=== PATIENT | female | born 1950 | race Caucasian/White ===

== ENCOUNTER → 2017-09-15 | Outpatient (CLI) | payer OTHER ==
[2017-09-15 12:04] LABS: HEMATOCRIT 39.5 % (37-47); MEAN CELL VOLUME 88.8 fL (80-100); MEAN CORPUSCULAR HEMOGLOBIN 29.2 pg (25-34); MEAN CORPUSCULAR HGB CONC 32.9 g/dl (32-36); PLATELET COUNT 278 K/uL (130-400); RED BLOOD COUNT 4.45 M/uL (4.2-5.4); WHITE BLOOD COUNT 4.47 K/uL (4.8-10.8)
[2017-09-15 12:33] LABS: ALKALINE PHOSPHATASE 77 U/L (45-117); ALT/SGPT 26 U/L (12-78); AST/SGOT 23 U/L (15-37); BLOOD UREA NITROGEN 9 mg/dl (7-18); BUN/CREATININE RATIO 11.8 (10-20); CALCIUM 8.9 mg/dl (8.5-10.1); CARBON DIOXIDE 28 mmol/L (21-32); CHLORIDE 104 mmol/L (98-107); CREATININE 0.79 mg/dl (0.60-1.20); GLUCOSE,FASTING 95 mg/dl (70-99); HDL CHOLESTEROL 76 mg/dl; POTASSIUM 3.9 mmol/L (3.5-5.1); SODIUM 139 mmol/L (136-145)
[2017-09-15 12:41] LABS: CHOLESTEROL 227 mg/dl (0-200); LDL CHOLESTEROL CALCULATED 125 mg/dl; TRIGLYCERIDES 128 mg/dl (0-150); VERY LOW DENSITY LIPOPROT CALC 26 mg/dl
== END | disposition home or self-care (01) ==
LOC: C.LABPBG 07:42
PROVIDERS: ATTEND Physician Assistant
DX: Z00.00 Encounter for general adult medical examination without abnormal findings (principal); E55.9 Vitamin D deficiency, unspecified; D64.9 Anemia, unspecified

== ENCOUNTER → 2018-01-11 | Outpatient (CLI) | payer OTHER | END | disposition home or self-care (01) | LOC: C.LAB 07:39 | PROVIDERS: ATTEND Nutritionist | DX: R53.83 Other fatigue (principal) ==

== ENCOUNTER 2024-03-16 14:52 | Inpatient (IN) ==
--- NOTE | 2024-03-16 15:03 | ED Triage Note ---
Date of Service March 16, 2024 Provider in Triage Author: Carmelina Shetty History of Present Illness This patient was briefly evaluated while in triage. An abbreviated physical exam was performed. This patient is a 73-year-old Female who presents to the ED for evaluation of eye problems. She went to her eye doctor today b/c she was only seeing shadows in her left eye. The retinal specialist then saw her and drained some fluid. She was then referred to the ER for concerns for a clot in her eye. Symptoms started at 9:45 am, resolved, and then returned again around 10:30 am and hasn't gone away since. Diagnosed with new central retinal artery occlusion and posterior vitreous detachment. Sent to the ER for stroke workup. Physical Exam GENERAL: Non-toxic and in no acute distress. HEENT: Pupils equal. No obvious scleral icterus. HEART: Regular rate and rhythm. LUNGS: Clear to auscultation. No accessory muscle use. ABDOMEN: Soft, nontender to palpation. NEURO: Alert and oriented. No facial droop. Normal speech. Full range of motion of the bilateral upper and lower extremities without weakness. No obvious neurological deficits on quick neuro exam. Dr. Little was notified of the patient's symptoms and the letter carrier recommendations. He did not feel the patient required a stroke alert at this time. Initial orders for labs and / or imaging were placed and patient was taken directly back to a room for Dr. Little to evaluate the patient. Please see further documentation for the full ED course. MDM / Impression Impression Impression: Central retinal artery occlusion, left eye, Hypertension, Vision loss, left eye Impression: Hypertension Qualifiers: Hypertension type: unspecified Qualified Code(s): I10 - Essential (primary) hypertension
[2024-03-16] MEDS: SODIUM CHLORIDE 0.9% 1,000 ML IV ONE ×2 (15:24→17:50)
[2024-03-16] MEDS: OPTIRAY 320 125ml IV ONE (15:40)
[2024-03-16 15:42] LABS: Basophils # (auto) 0.05 K/uL (0.00-0.20); Basophils % (auto) 0.6 %; Eosinophils # (auto) 0.01 K/uL (0.00-0.50); Eosinophils % (auto) 0.1 %; Hematocrit (blood only) 46.4 % (37.0-47.0); Hemoglobin 16.3 g/dl (12.0-16.0); Immature Granulocytes # (auto) 0.04 K/uL (0.01-0.20); Immature Granulocytes % (auto) 0.5 %; Lymphocytes # (auto) 0.61 K/uL (1.20-3.40); Lymphocytes % (auto) 7.4 %; Mean Corpuscular Hemoglobin 32.1 pg (25.0-34.0); Mean Corpuscular Hgb Conc 35.1 g/dL (32.0-36.0); Mean Corpuscular Volume 91.3 fL (80.0-100.0); Mean Platelet Volume 8.4 fL (9.4-12.4); Monocytes # (auto) 0.24 K/uL (0.11-0.59); Monocytes % (auto) 2.9 %; Neutrophils # (auto) 7.26 K/uL (1.40-6.50); Neutrophils % (auto) 88.5 %; Platelet Count 281 K/uL (130-400); RDW Coefficient of Variation 12.4 % (11.5-14.5); RDW Standard Deviation 41.6 fL (36.4-46.3); Red Blood Count 5.08 M/uL (4.20-5.40); White Blood Count 8.21 K/ul (4.8-10.8)
--- NOTE | 2024-03-16 15:57 | CT Scan Report ---
CT SCAN OF THE BRAIN WITHOUT IV CONTRAST CLINICAL HISTORY: Neurological deficit. Stroke like symptoms. COMPARISON STUDY: MRI of the brain dated 02/06/2020. TECHNIQUE: Unenhanced axial CT scan of the brain is performed from the vertex to the skull base. A do se lowering technique was utilized adhering to the principles of ALARA. FINDINGS: Brain parenchyma: There is age-related involutional change noting mild subcortical and periventricula r microangiopathic disease. There is no hemorrhage, mass effect, or evidence of acute territorial isc hemia by CT criteria. Napier-white matter differentiation is preserved. No extra-axial fluid collection is seen. Ventricles, sulci, cisterns: Prominent secondary to involutional change. Intracranial vasculature: There is atherosclerotic calcification of the cavernous carotid and vertebr al arteries. Calvarium: Unremarkable. Sinuses and mastoids: The visualized paranasal sinuses are clear. The mastoid air cells are well pneu matized. Orbits: The bony orbits are grossly intact. IMPRESSION: There is no hemorrhage, mass effect, or evidence of acute territorial ischemia by CT alecia gatica. ACT 112: Negative or not required by law. Electronically signed by: Ronni Magana M.D. 03/16/2024 3:56 PM
[2024-03-16 15:58] LABS: Alanine Aminotransferase 20 U/L (7-52); Albumin Globulin Ratio 1.4 (0.9-2); Albumin Level 4.6 gm/dl (3.4-5.0); Alkaline Phosphatase 96 U/L (34-104); Anion Gap 7 (3-11); Aspartate Aminotransferase 25 U/L (13-39); BUN Creatinine Ratio 11.6 (10-20); Bilirubin,Total 0.5 mg/dl (0.2-1.0); Blood Urea Nitrogen 8 mg/dl (6-23); C Reactive Protein < 0.50 mg/dl (0-0.5); Calcium 10.1 mg/dl (8.6-10.3); Carbon Dioxide 29 mmol/L (21-32); Chloride 101 mmol/L (98-107); Creatinine Clr Calc Pharmacy 71.7 ml/min; Est GFR (African American) 100.8 ml/min; Globulin 3.2 gm/dl (2.5-4.0); Glucose 119 mg/dl (70-99(Fasting)); Magnesium 2.1 mg/dl (1.7-2.4); Potassium 3.5 mmol/L (3.5-5.1); Sodium 137 mmol/L (136-145); Total Protein 7.8 gm/dl (6.0-8.3)
--- NOTE | 2024-03-16 16:01 | CT Scan Report ---
CT ANGIOGRAPHY OF THE NECK WITH CONTRAST CLINICAL HISTORY: neuro deficit, acute stroke suspected COMPARISON STUDY: No previous studies for comparison. Technique: CT angiography of the carotid and vertebral arteries was obtained using Optiray and 3D rec onstruction on an independent workstation. NASCET criteria was utilized. Automated exposure control was utilized for the study. A dose lowering technique was utilized adhering to the principles of ALA RA. CT DOSE: 971.38 mGy.cm Findings: Visualized portions of the lung apices are unremarkable. There is no cervical spine fractur e. There is no cervical lymphadenopathy. The bilateral common carotid, cervical internal carotid and vertebral arteries are patent. No dissection, stenosis or aneurysm within the neck is identified. IMPRESSION: Unremarkable CTA of the neck. ACT 112: Negative or not required by law. Electronically signed by: Shawn Andres M.D. 03/16/2024 3:59 PM
--- NOTE | 2024-03-16 16:02 | CT Scan Report ---
CT angio head w con CLINICAL HISTORY: 73 years-old Female with neuro deficit, acute stroke suspected. Acute strokelike symptoms COMPARISON STUDY: Head CT of same day TECHNIQUE: Following the IV administration of 119 cc of Optiray, CT angiogram of the brain was perfor med from the skull base to the vertex. Images are reviewed in the axial, sagittal, and coronal planes . 3-D MIPS images are created and assessed. IV contrast was administered without complication. All me asurements were obtained according to NASCET criteria. A dose lowering technique was utilized adherin g to the principles of ALARA. FINDINGS: CT ANGIOGRAM OF THE BRAIN: The imaged bilateral internal carotid arteries are patent. The bilateral anterior and middle cerebral arteries are also patent. The vertebrobasilar system and posterior cerebral arteries are widely doe nt. There is no aneurysm, high-grade stenosis, or proximal branch occlusion identified. Dural sinuses appear patent. IMPRESSION: Unremarkable CTA of the head. ACT 112: Negative or not required by law. The above report was generated using voice recognition software. It may contain grammatical, syntax o r spelling errors. Electronically signed by: Edgar Woods M.D. 03/16/2024 4:01 PM
[2024-03-16 16:04] LABS: INR 0.9 (0.9-1.1); Partial Thromboplastin Time 27 Seconds (21-31); Prothrombin Time 10.3 Seconds (9.0-12.0); Troponin I High Sensitivity 5.9 pg/ml (0-14)
--- NOTE | 2024-03-16 16:53 | Electrocardiogram Report ---
Test Reason : Blood Pressure : / mmHG Vent. Rate : 084 BPM Atrial Rate : 084 BPM P-R Int : 148 ms QRS Dur : 082 ms QT Int : 386 ms P-R-T Axes : 076 070 062 degrees QTc Int : 456 ms Normal sinus rhythm with sinus arrhythmia Nonspecific ST abnormality Abnormal ECG When compared with ECG of 25-MAY-2020 08:20, No significant change was found Confirmed by Lucio Camara ([id number]) on 03/16/2024 4:52:50 PM Referred By: Confirmed By:Jeremy Camara
--- NOTE | 2024-03-16 17:39 | Emergency Department Note ---
Impression & Plan Central retinal artery occlusion, left eye, Hypertension, Vision loss, left eye ED Provider Note NAME: DIDIER DILLARD AGE: 73 SEX: F : 1950 ARRIVES VIA: Walk-In INFORMANT: Patient ED PROVIDER(S): Christian Little MD CHIEF COMPLAINT: CRAO, referred. PLAN: Disposition: Admit MEDICAL DECISION MAKING: The patient is a pleasant 73-year-old woman with a past medical history of hypertension, hyperlipidemia who presents to the emergency department via walk- in, referred by retina specialist after being seen by her english language arts teacher and referred to the retina specialist this morning after she developed decreased vision in her left eye around 945 this morning that had fluctuated in severity before becoming more persistent. She was diagnosed with a left central retinal artery occlusion and received treatment with anterior chamber paracentesis per her description. She was for the most department for further stroke evaluation. She denies any other symptoms including extremity weakness, difficulty with balance, or difficulty with speech or word finding. On evaluation the patient is no acute distress, afebrile blood pressure in triage initially 219/138 with heart in the 90s and vital signs otherwise stable. She appears clinically dry. She has recovered some gross central vision in the left eye. Otherwise she has no focal neurologic deficits. EKG without overt acute ischemia. WBC, HCT and platelets within normal limits. Chemistry without metabolic acidosis. Electrolytes and LFTs without significant abnormality. High- sensitivity troponin 5.9, within normal limits. CRP is undetectable. ESR is not elevated. CT of the head and CT of the head and neck was negative for acute abnormalities. Patient agrees plan for admission for further management and stroke evaluation. Blood pressure did remain elevated however showed improving trend with approximate 15% reduction in MAP following IVF hydration. Case was d/w Dr. Ferrer, [facility] hospitalist who will evaluate the patient for admission. Further management per admitting team. Triage Nursing notes reviewed and agree them. Prior/external medical records reviewed Vital Signs: reviewed Differential diagnosis: Infection, dehydration, metabolic abnormality, hypo/hyperglycemia, electrolyte disturbance, anemia, hypoxia, cardiac sources, intracerebral event, toxicologic, neurologic, as well as other pathologies. ER treatment provided: See below. Diagnostics interpreted by me: ECG: Normal sinus rhythm with sinus arrhythmia, 84 bpm, no ectopy, nonspecific ST abnormality, no overt ST elevation or depression, QTc 456, QRS 82. Cardiac Monitoring: An order for continuous cardiac monitoring was placed and demonstrated Normal sinus rhythm with sinus arrhythmia, 84 bpm, no ectopy. Laboratory studies: See below Imaging studies: See below Consultation(s): Case was d/w Dr. Ferrer, [facility] hospitalist who will evaluate the patient for admission. HPI: The patient is a pleasant 73-year-old woman with a past medical history of hypertension, hyperlipidemia who presents to the emergency department via walk- in, referred by retina specialist after being seen by her english language arts teacher and referred to the retina specialist this morning after she developed decreased vision in her left eye around 945 this morning that had fluctuated in severity before becoming more persistent. She was diagnosed with a left central retinal artery occlusion and received treatment with anterior chamber paracentesis per her description. She was for the most department for further stroke evaluation. She denies any other symptoms including extremity weakness, difficulty with balance, or difficulty with speech or word finding. ROS: See above HPI for pertinent positives & negatives. A total of 10 systems reviewed and were otherwise negative. VITALS:See Below PHYSICAL EXAMINATION: GENERAL: Awake, alert, in no distress HENT: Normocephalic, atraumatic. Oropharynx with dry mucous membranes and otherwise unremarkable. EYES: Normal conjunctiva. Sclera non-icteric. Pupils dilated bilaterally from prior exam. NECK: Supple. No nuchal rigidity. FROM. No JVD. RESPIRATORY: Clear to auscultation. CARDIAC: Regular rate, normal rhythm. Extremities warm and well perfused. Pulses equal. ABDOMEN: Soft, non-distended. No tenderness to palpation. No rebound or guarding. No masses. MUSCULOSKELETAL: Chest examination reveals no tenderness. The back is symmetrical on inspection without obvious abnormality. There is no CVA tenderness to palpation. No joint edema. LOWER EXTREMITIES: Calves are equal size bilaterally and non-tender. No edema. No discoloration. NEURO: Impaired vision in left eye. Otherwise, Face symmetric. Speech normal. No aphasia. 5/5 strength and SILT x 4 extremities. Cerebellar function intact including [id number], alternating palms, [id number]. SKIN: No rash or jaundice noted. Christian Little MD Past Med/Surg History Medical History Elevated fecal calprotectin Stomach ulcer Vitamin D deficiency Osteoporosis Iron deficiency anemia Hypercholesterolemia Hypertension Surgical History S/P gastric surgery stomach surgery Ulcer Surgery - 1972 Family History Father Colorectal cancer Prostate cancer Other No family history of adverse response to anesthesia No family history of bleeding disorder Denies family history of Ovarian cancer Myocardial infarction Breast cancer Social History Smoking Status: Never smoker Second Hand Exposure: No; Do You Dip or Chew Tobacco: No; Hx Alcohol Use: No Hx Substance Use: No Preferred Language: Japanese Communication Ability: Effective Visual Impairment: Limited Hearing Ability: Hard of Hearing Procedures Tech Required: No Beliefs That Will Affect Care: None marital status: Current Living Situation: Spouse current occupational status: employed current occupation: house cleaning How many Children do You have: 2 How many Children do You have Comment: 2 girls Feels Safe at Home: Yes Safety Concerns: Feels Safe At This Time Childhood Exposure to Second-Hand Smoke: Yes Diet: regular Diet Comment: regular caffeine: Yes (green tea 3 cups per day) during the past year weight has: remained stable Dental Care, Regularly: Yes Physical Activity Frequency: Daily Seatbelt Use: always Sunscreen Use: No Assistive Devices: None Allergies Allergies Allergy/AdvReac Type Severity Reaction Status Date / Time No Known Drug Allergies Allergy Verified 03/16/24 18:59 Home Meds Home Medications Medication Instructions Recorded Confirmed multivitamin (Daily Multi-Vitamin 1 tab PO DAILY 09/20/19 03/16/24 tablet) Osteoben 2 cap PO BID 05/25/20 03/16/24 TRF-150 1 tab PO DAILY 09/17/21 03/16/24 PREGNENOLONE 1 tab PO DAILY 03/24/22 03/16/24 ferrochel 1 tab PO DAILY 03/24/22 03/16/24 lactobacillus combination no.9 4 4,000 mmu cells PO DAILY 03/22/23 03/16/24 billion cell capsule (Adult 50 Plus Probiotic) tri k 2,500 mg PO BID 03/22/23 03/16/24 coenzyme Q10 100 mg capsule (Co 100 mg PO DAILY 09/27/23 03/16/24 Q-10) prasterone (dhea) 25 mg capsule 25 mg PO DAILY 09/27/23 03/16/24 (DHEA) acetylcysteine 500 mg capsule 500 mg PO DAILY 03/16/24 03/16/24 cholecalciferol (vitamin D3) 25 25 mcg PO DAILY 03/16/24 03/16/24 mcg (1,000 unit) tablet (Vitamin D3) Results & Data (ED) Vital Signs Vital Signs - 24 hr 03/16/24 14:59 03/16/24 15:04 03/16/24 15:05 Temperature 36.8 C Temperature Source Temporal Artery Scan Pulse Rate 92 H Pulse Rate [Apical] 92 H Respiratory Rate 18 16 Respiratory Effort / Characteristics Non-Labored Non-Labored Spontaneous Respiratory Depth Normal Normal Respiratory Pattern Regular Regular Blood Pressure 219/138 H Blood Pressure [Left Arm] 186/120 H Blood Pressure Mean 165 Blood Pressure Mean [Left Arm] 142 Blood Pressure Position [Left Arm] Semi-fowlers Pulse Oximetry 97 97 Oxygen Delivery Method Room Air Room Air Room Air Sepsis Recent Fever Within 48 Hours No Sepsis New/Unexplained Change in Mental Status N/A Sepsis Action Taken by Nursing No Action Required 03/16/24 16:18 Temperature Temperature Source Pulse Rate 87 Pulse Rate [Apical] Respiratory Rate Respiratory Effort / Characteristics Respiratory Depth Respiratory Pattern Blood Pressure Blood Pressure [Left Arm] Blood Pressure Mean Blood Pressure Mean [Left Arm] Blood Pressure Position [Left Arm] Pulse Oximetry Oxygen Delivery Method Sepsis Recent Fever Within 48 Hours Sepsis New/Unexplained Change in Mental Status Sepsis Action Taken by Nursing Laboratory Data Attestation: I reviewed the patient's lab results. 03/16/24 15:14 03/16/24 15:14 Lab Results 03/16/24 03/16/24 Range/Units 15:14 15:17 WBC 8.21 (4.8-10.8) K/ul RBC 5.08 (4.20-5.40) M/uL Hgb 16.3 H (12.0-16.0) g/dl Hct 46.4 (37.0-47.0) % MCV 91.3 (80.0-100.0) fL MCH 32.1 (25.0-34.0) pg MCHC 35.1 (32.0-36.0) g/dL RDW Std Deviation 41.6 (36.4-46.3) fL RDW Coeff of Brittny 12.4 (11.5-14.5) % Plt Count 281 (130-400) K/uL MPV 8.4 L (9.4-12.4) fL Immature Gran % (Auto) 0.5 % Neut % (Auto) 88.5 % Lymph % (Auto) 7.4 % Lenoir % (Auto) 2.9 % Eos % (Auto) 0.1 % Baso % (Auto) 0.6 % Neut # (Auto) 7.26 H (1.40-6.50) K/uL Lymph # (Auto) 0.61 L (1.20-3.40) K/uL Len[place] # (Auto) 0.24 (0.11-0.59) K/uL Eos # (Auto) 0.01 (0.00-0.50) K/uL Baso # (Auto) 0.05 (0.00-0.20) K/uL Immature Gran # (Auto) 0.04 (0.01-0.20) K/uL ESR 21 (0-30) mm/hr PT 10.3 (9.0-12.0) Seconds INR 0.9 (0.9-1.1) APTT 27 (21-31) Seconds PTT Ratio 1.0 Sodium 137 (136-145) mmol/L Potassium 3.5 (3.5-5.1) mmol/L Chloride 101 (98-107) mmol/L Carbon Dioxide 29 (21-32) mmol/L Anion Gap 7 (3-11) BUN 8 (6-23) mg/dl Creatinine 0.69 (0.6-1.2) mg/dl Est Cr Clr Drug Dosing 71.7 ml/min Est GFR ( Amer) 100.8 ml/min Est GFR (Non-Af Amer) 87.0 ml/min BUN/Creatinine Ratio 11.6 (10-20) Glucose 119 H (70-99(Fasting)) mg/dl POC Glucose 115 H (70-99) mg/dl Calcium 10.1 (8.6-10.3) mg/dl Magnesium 2.1 (1.7-2.4) mg/dl Total Bilirubin 0.5 (0.2-1.0) mg/dl AST 25 (13-39) U/L ALT 20 (7-52) U/L Alkaline Phosphatase 96 (34-104) U/L Troponin I High Sens 5.9 (0-14) pg/ml C-Reactive Protein < 0.50 (0-0.5) mg/dl Total Protein 7.8 (6.0-8.3) gm/dl Albumin 4.6 (3.4-5.0) gm/dl Globulin 3.2 (2.5-4.0) gm/dl Albumin/Globulin Ratio 1.4 (0.9-2) Blood Type O Positive Antibody Screen NEGATIVE Administered Medications Discontinued Medications Aspirin (Aspirin 81 Mg Chew) 324 mg PO NOW STA Stop: 03/16/24 18:36 Last Admin: 03/16/24 18:45 Dose: 324 mg Documented By: BIGGD Sodium Chloride (Nss) 1,000 mls @ 999 mls/hr IV .Q1H1M ONE Stop: 03/16/24 16:11 Last Infusion: 03/16/24 17:50 Dose: Infused Documented By: Admin: 03/16/24 15:24 Dose: 999 mls/hr Documented By: BIGGD Sodium Chloride (Nss) 1,000 mls @ 999 mls/hr IV .Q1H1M ONE Stop: 03/16/24 18:14 Last Infusion: 03/16/24 18:52 Dose: Infused Documented By: Admin: 03/16/24 17:50 Dose: 999 mls/hr Documented By: BIGGD Ioversol (Optiray 320 125ml) 119 ml IV ONCE ONE Stop: 03/16/24 15:41 Last Admin: 03/16/24 15:40 Dose: 119 ml Documented By: RENZO Imaging Data Radiologist's Impression: Head CT 03/16/24 15:04 CT SCAN OF THE BRAIN WITHOUT IV CONTRAST CLINICAL HISTORY: Neurological deficit. Stroke like symptoms. COMPARISON STUDY: MRI of the brain dated 02/06/2020. TECHNIQUE: Unenhanced axial CT scan of the brain is performed from the vertex to the skull base. A dose lowering technique was utilized adhering to the principles of ALARA. FINDINGS: Brain parenchyma: There is age-related involutional change noting mild subcortical and periventricular microangiopathic disease. There is no hemorrhage, mass effect, or evidence of acute territorial ischemia by CT criteria. Napier-white matter differentiation is preserved. No extra-axial fluid collection is seen. Ventricles, sulci, cisterns: Prominent secondary to involutional change. Intracranial vasculature: There is atherosclerotic calcification of the cavernous carotid and vertebral arteries. Calvarium: Unremarkable. Sinuses and mastoids: The visualized paranasal sinuses are clear. The mastoid air cells are well pneumatized. Orbits: The bony orbits are grossly intact. IMPRESSION: There is no hemorrhage, mass effect, or evidence of acute territorial ischemia by CT criteria. ACT 112: Negative or not required by law. Electronically signed by: Ronin Magana M.D. 03/16/2024 3:56 PM Head CTA 03/16/24 15:04 CT angio head w con CLINICAL HISTORY: 73 years-old Female with neuro deficit, acute stroke suspected. Acute strokelike symptoms COMPARISON STUDY: Head CT of same day TECHNIQUE: Following the IV administration of 119 cc of Optiray, CT angiogram of the brain was performed from the skull base to the vertex. Images are reviewed in the axial, sagittal, and coronal planes. 3-D MIPS images are created and assessed. IV contrast was administered without complication. All measurements were obtained according to NASCET criteria. A dose lowering technique was utilized adhering to the principles of ALARA. FINDINGS: CT ANGIOGRAM OF THE BRAIN: The imaged bilateral internal carotid arteries are patent. The bilateral anterior and middle cerebral arteries are also patent. The vertebrobasilar system and posterior cerebral arteries are widely patent. There is no aneurysm, high-grade stenosis, or proximal branch occlusion identified. Dural sinuses appear patent. IMPRESSION: Unremarkable CTA of the head. ACT 112: Negative or not required by law. The above report was generated using voice recognition software. It may contain grammatical, syntax or spelling errors. Electronically signed by: Edgar Woods M.D. 03/16/2024 4:01 PM Neck CTA 03/16/24 15:04 CT ANGIOGRAPHY OF THE NECK WITH CONTRAST CLINICAL HISTORY: neuro deficit, acute stroke suspected COMPARISON STUDY: No previous studies for comparison. Technique: CT angiography of the carotid and vertebral arteries was obtained using Optiray and 3D reconstruction on an independent workstation. NASCET criteria was utilized. Automated exposure control was utilized for the study. A dose lowering technique was utilized adhering to the principles of ALARA. CT DOSE: 971.38 mGy.cm Findings: Visualized portions of the lung apices are unremarkable. There is no cervical spine fracture. There is no cervical lymphadenopathy. The bilateral common carotid, cervical internal carotid and vertebral arteries are patent. No dissection, stenosis or aneurysm within the neck is identified. IMPRESSION: Unremarkable CTA of the neck. ACT 112: Negative or not required by law. Electronically signed by: Shawn Andres M.D. 03/16/2024 3:59 PM Discharge Plan Visit Data Chief Complaint: Stroke/CVA Symptoms Stated Complaint: EYE STROKE ED Provider: Christian Little Discharge Problem: Central retinal artery occlusion, left eye, Hypertension, Vision loss, left eye Discharge Instructions Interventions: ED Discharge Assessment Last Done: 03/16/24 20:43 Discharge Problem: Hypertension Qualifiers: Hypertension type: unspecified Qualified Code(s): I10 - Essential (primary) hypertension
[2024-03-16] MEDS ORDERED: PHARMACIST DISCHARGE MED REC CONSULT PRN (18:14)
--- NOTE | 2024-03-16 18:14 | History & Physical Report ---
Date of Service March 16, 2024 Assessment & Plan (1) Vision loss, left eye: Plan: -Admit to med/tele -Currently hypertensive at 186/120 but other nesbitt stable -Had acute onset of blurred vision in the left eye this am around 0930, was evaluated by Her assembler sandal parts and retinal specialist who were concerned for possible CVA -CT of the head/brain wo con and CTA of the head/neck were negative for acute findings -We will obtain MRI of the brain w/wo con for further evaluation -Will allow permissive HTN for now until MRI results are back -If MRI shows acute CVA would obtain a TTE tomorrow -Will order Hgb A1c and fasting lipid panel for tomorrow am -Will give 324 mg Aspirin now -PT/OT consults -Q4h neuro checks -HH diet -AM CBC, BMP, mag, PT/INR, Hgb A1c, fasting lipid panel (2) Hypertension: Plan: -Allow for permissive HTN until MRI results are back -If MRI is negative for CVA would begin to treat and continue workup for HTN (3) Central retinal artery occlusion, left eye: Plan The patient was discussed with Dr. Ferrer at the time of the admission History of Present Illness Chief Complaint: Left eye vision changes Primary Care Provider: JONE Cornejo Justine is a 73 year old female with a PMH significant for HTN, Hyperlipidemia, Iron deficiency anemia, and Vitamin B12 deficiency who presented to the [facility] ED from a retinal specialist due to concerns for possible stroke with new onset left eye vision changes. She was noted to be hypertensive at 219/138 and tachycardic at 92 but otherwise stable. Labs were significant for a glucose of 119. CT of the head/brain wo con and CTA of the head/neck were read as negative for acute findings. Prior to admission the patient was given 2L NSS. We were asked to admit the patient for ongoing stroke evaluation. At the time of the exam the patient was sitting in bed in no acute distress. She had been in her normal state of health until this am around 0930 when she developed sudden onset of blurry vision in the left eye. She states that it looked as though there was a shadow over the visual field of her left eye. She denies any other neurological symptoms. The first episode lasted for approximately 5 minutes then resolved on it's own. It then returned approximately 15 min later and lasted for another 5 min before resolving. It returned for a third time shortly after and was persistent. She was evaluated by her normal Corporate Paralegal who was concerned for a possible CVA and sent her to a retinal specialist in [place]. She was evaluated by the retinal specialist who dilated both pupils and drained some fluid from her left eye. He then sent her to the ED for further evaluation. Since arriving to the ED she states that her vision improved slightly in the left eye. Her vision is still blurry but she is able to seem some shapes now. She denies alcohol and tobacco use. Denies previous hx of a CVA. She is a full code and her would make medical decisions for her if she cannot make them herself. Please refer to Dr. Ferrer's attestation for any changes to the treatment plan Allergies Allergy/AdvReac Type Severity Reaction Status Date / Time No Known Drug Allergies Allergy Verified 03/16/24 18:59 Home Medications Medication Instructions Recorded Confirmed Type multivitamin (Daily Multi-Vitamin 1 tab PO DAILY 09/20/19 03/16/24 History tablet) Osteoben 2 cap PO BID 05/25/20 03/16/24 History TRF-150 1 tab PO DAILY 09/17/21 03/16/24 History PREGNENOLONE 1 tab PO DAILY 03/24/22 03/16/24 History ferrochel 1 tab PO DAILY 03/24/22 03/16/24 History lactobacillus combination no.9 4 4,000 mmu cells PO DAILY 03/22/23 03/16/24 History billion cell capsule (Adult 50 Plus Probiotic) tri k 2,500 mg PO BID 03/22/23 03/16/24 History coenzyme Q10 100 mg capsule (Co 100 mg PO DAILY 09/27/23 03/16/24 History Q-10) prasterone (dhea) 25 mg capsule 25 mg PO DAILY 09/27/23 03/16/24 History (DHEA) acetylcysteine 500 mg capsule 500 mg PO DAILY 03/16/24 03/16/24 History cholecalciferol (vitamin D3) 25 25 mcg PO DAILY 03/16/24 03/16/24 History mcg (1,000 unit) tablet (Vitamin D3) Past Med/Surg History Medical History Elevated fecal calprotectin Stomach ulcer Vitamin D deficiency Osteoporosis Iron deficiency anemia Hypercholesterolemia Hypertension Surgical History S/P gastric surgery stomach surgery Ulcer Surgery - 1972 Family History Father Colorectal cancer Prostate cancer Other No family history of adverse response to anesthesia No family history of bleeding disorder Denies family history of Ovarian cancer Myocardial infarction Breast cancer Social History Smoking Status: Never smoker Second Hand Exposure: No; Do You Dip or Chew Tobacco: No; Hx Alcohol Use: No Hx Substance Use: No Preferred Language: Venezuelan Communication Ability: Effective Visual Impairment: Limited Hearing Ability: Hard of Hearing Oral Surgery Physician Required: No Beliefs That Will Affect Care: None marital status: Current Living Situation: Spouse current occupational status: employed current occupation: house cleaning How many Children do You have: 2 How many Children do You have Comment: 2 girls Feels Safe at Home: Yes Safety Concerns: Feels Safe At This Time Childhood Exposure to Second-Hand Smoke: Yes Diet: regular Diet Comment: regular caffeine: Yes (green tea 3 cups per day) during the past year weight has: remained stable Dental Care, Regularly: Yes Physical Activity Frequency: Daily Seatbelt Use: always Sunscreen Use: No Assistive Devices: None Physical Exam Physical Exam: Physical Exam: General: In no acute distress, stated age, well-nourished, good hygiene HEENT: Normocephalic, atraumatic, no scleral icterus, both pupils are still dilated from previous eye exam, right pupil does react to light, left eye minimally reacts to light, conjunctival injection noted in the left eye, moist mucus membranes, trachea midline, no thyromegaly Chest/Pulm: No respiratory distress, symmetrical chest expansion, clear breath sounds throughout Cardiac: RRR, no murmurs noted Abdomen: Negative for ascites and bruising, normoactive bowel sounds, soft, non-tender to palpation throughout Musculoskeletal: Symmetrical and without signs of acute trauma, upper and lower extremities with full ROM, no atrophy, spasticity, or flaccidity Extremities: Radial, dorsalis pedis, and posterior tibial pulses are intact and symmetrical, no edema noted in the BL LE's Skin: Warm, dry, no rashes , lesions, or scars noted Neuro: Alert and oriented to person, place, month, year, and president, no focal defects, CN II-XII tested without focal changes other than left eye changes listed above, negative cerebellar and pronator drift testing in the BL upper extremities, no tremors noted Psych: No acute distress, calm and cooperative during the exam Results & Data Results & Data Vital Signs (Past 12 Hours) Vital Signs Temp Pulse Pulse Resp BP BP Pulse Ox 03/16/24 16:18 87 03/16/24 15:04 92 H 16 186/120 H 97 03/16/24 14:59 36.8 C 92 H 18 219/138 H 97 O2 Del Method 03/16/24 16:18 03/16/24 15:04 Room Air 03/16/24 14:59 Room Air Laboratory Results Abnormal lab results 03/16/24 03/16/24 Range/Units 15:14 15:17 Hgb 16.3 H (12.0-16.0) g/dl MPV 8.4 L (9.4-12.4) fL Neut # (Auto) 7.26 H (1.40-6.50) K/uL Lymph # (Auto) 0.61 L (1.20-3.40) K/uL Glucose 119 H (70-99(Fasting)) mg/dl POC Glucose 115 H (70-99) mg/dl Diagnostic Findings Head CT 03/16/24 15:04 CT SCAN OF THE BRAIN WITHOUT IV CONTRAST CLINICAL HISTORY: Neurological deficit. Stroke like symptoms. COMPARISON STUDY: MRI of the brain dated 02/06/2020. TECHNIQUE: Unenhanced axial CT scan of the brain is performed from the vertex to the skull base. A dose lowering technique was utilized adhering to the principles of ALARA. FINDINGS: Brain parenchyma: There is age-related involutional change noting mild subcortical and periventricular microangiopathic disease. There is no hemorrhage, mass effect, or evidence of acute territorial ischemia by CT criteria. Napier-white matter differentiation is preserved. No extra-axial fluid collection is seen. Ventricles, sulci, cisterns: Prominent secondary to involutional change. Intracranial vasculature: There is atherosclerotic calcification of the cavernous carotid and vertebral arteries. Calvarium: Unremarkable. Sinuses and mastoids: The visualized paranasal sinuses are clear. The mastoid air cells are well pneumatized. Orbits: The bony orbits are grossly intact. IMPRESSION: There is no hemorrhage, mass effect, or evidence of acute territorial ischemia by CT criteria. ACT 112: Negative or not required by law. Electronically signed by: Ronni Magana M.D. 03/16/2024 3:56 PM Head CTA 03/16/24 15:04 CT angio head w con CLINICAL HISTORY: 73 years-old Female with neuro deficit, acute stroke suspected. Acute strokelike symptoms COMPARISON STUDY: Head CT of same day TECHNIQUE: Following the IV administration of 119 cc of Optiray, CT angiogram of the brain was performed from the skull base to the vertex. Images are reviewed in the axial, sagittal, and coronal planes. 3-D MIPS images are created and assessed. IV contrast was administered without complication. All measurements were obtained according to NASCET criteria. A dose lowering technique was utilized adhering to the principles of ALARA. FINDINGS: CT ANGIOGRAM OF THE BRAIN: The imaged bilateral internal carotid arteries are patent. The bilateral anterior and middle cerebral arteries are also patent. The vertebrobasilar system and posterior cerebral arteries are widely patent. There is no aneurysm, high-grade stenosis, or proximal branch occlusion identified. Dural sinuses appear patent. IMPRESSION: Unremarkable CTA of the head. ACT 112: Negative or not required by law. The above report was generated using voice recognition software. It may contain grammatical, syntax or spelling errors. Electronically signed by: Edgar Woods M.D. 03/16/2024 4:01 PM Neck CTA 03/16/24 15:04 CT ANGIOGRAPHY OF THE NECK WITH CONTRAST CLINICAL HISTORY: neuro deficit, acute stroke suspected COMPARISON STUDY: No previous studies for comparison. Technique: CT angiography of the carotid and vertebral arteries was obtained using Optiray and 3D reconstruction on an independent workstation. NASCET criteria was utilized. Automated exposure control was utilized for the study. A dose lowering technique was utilized adhering to the principles of ALARA. CT DOSE: 971.38 mGy.cm Findings: Visualized portions of the lung apices are unremarkable. There is no cervical spine fracture. There is no cervical lymphadenopathy. The bilateral common carotid, cervical internal carotid and vertebral arteries are patent. No dissection, stenosis or aneurysm within the neck is identified. IMPRESSION: Unremarkable CTA of the neck. ACT 112: Negative or not required by law. Electronically signed by: Shawn Andres M.D. 03/16/2024 3:59 PM ECG Additional Comments: Normal sinus rhythm with sinus arrhythmia Nonspecific ST abnormality Abnormal ECG When compared with ECG of 25-MAY-2020 08:20, No significant change was found Confirmed by Lucio Camara ([id number]) on 03/16/2024 4:52:50 PM Code Status & VTE Plan Code Status Full code VTE Prophylaxis Plan VTE Prophylaxis will be ordered: Yes Supervising Physician Co-Signing Physician Notes I personally saw and examined the patient. I verified all lr points and agree with Dante Starr PA-C with the following exceptions and/or additions: 73 year old diagnosed with central retinal artery occlusion that occurred earlier today. S/p paracentesis performed by ophthalmology, here for secondary c ause workup. O/E HS RRR, no murmurs, Chest CTAB, Abdo SNT, no pronator drift, CN 2-> 12 intact other than reduced visual acuity in left eye (able to see fingers but cloudy and blurred) A/P Central retinal artery occlusion - s/p A/C paracentesis. Start aspirin, statin. Brain MRI. Consult neurology. TTE. Monitor for a. fib on telemetry overnight PG Care Time/CCT Total # of Minutes Spent Total Time Spent with Patient: Total time spent is greater than 50% in coordination of care (as documented) at patient's floor/unit and/or counseling patient: Coding [place] [address] INT INP/OBS CARE 2/55MIN Patient Type Established Medical Decision Making High Complexity Diagnoses Vision loss, left eye H54.62 Hypertension I10 Central retinal artery occlusion, left eye H34.12
[2024-03-16] MEDS ORDERED: ACETAMINOPHEN 325 MG TAB PO PRN (18:29)
[2024-03-16] MEDS: ASPIRIN 81 MG CHEW PO STA (18:45)
--- NOTE | 2024-03-16 20:08 | Magnetic Resonance Report ---
Exam(s): MRI HEAD Without Contrast EXAM: MR Head Without Intravenous Contrast CLINICAL HISTORY: Reason for exam: stroke evaluation. TECHNIQUE: Magnetic resonance images of the head/brain without intravenous contrast in multiple planes. COMPARISON: No relevant prior studies available. FINDINGS: No acute territorial infarct. No acute intracranial hemorrhage. No midline shift or mass effect. The territorial kaba-white matter differentiation is maintained throughout. Age-related cerebral volume loss. Periventricular and subcortical white matter T2 signal intensity, consistent with chronic microangiopathy. The visualized orbits appear grossly unremarkable. The calvarium is intact. The visualized paranasal sinuses and mastoid air cells are grossly clear. IMPRESSION: No acute territorial infarct. No acute intracranial hemorrhage. No midline shift or mass effect. Electronically signed by: Enoch Blankenship MD 03/16/24 20:07 PM
[2024-03-16] MEDS ORDERED: LABETALOL HCL IV 5 MG/ML 20ML IV PRN (21:36)
[2024-03-17 05:11] LABS: Basophils # (auto) 0.05 K/uL (0.00-0.20); Basophils % (auto) 0.7 %; Eosinophils # (auto) 0.09 K/uL (0.00-0.50); Eosinophils % (auto) 1.3 %; Hematocrit (blood only) 40.7 % (37.0-47.0); Hemoglobin 14.2 g/dl (12.0-16.0); Immature Granulocytes % (auto) 1.4 %; Lymphocytes # (auto) 1.08 K/uL (1.20-3.40); Lymphocytes % (auto) 15.3 %; Mean Corpuscular Hemoglobin 31.8 pg (25.0-34.0); Mean Corpuscular Hgb Conc 34.9 g/dL (32.0-36.0); Mean Corpuscular Volume 91.3 fL (80.0-100.0); Mean Platelet Volume 8.4 fL (9.4-12.4); Monocytes # (auto) 0.58 K/uL (0.11-0.59); Monocytes % (auto) 8.2 %; Neutrophils # (auto) 5.14 K/uL (1.40-6.50); Neutrophils % (auto) 73.1 %; Platelet Count 240 K/uL (130-400); RDW Coefficient of Variation 12.3 % (11.5-14.5); RDW Standard Deviation 41.1 fL (36.4-46.3); Red Blood Count 4.46 M/uL (4.20-5.40); White Blood Count 7.04 K/ul (4.8-10.8)
[2024-03-17 05:21] LABS: BUN Creatinine Ratio 12.7 (10-20); Calcium 9.2 mg/dl (8.6-10.3); Chol HDL Ratio 2.9 (0-5); Creatinine Clr Calc Pharmacy 78.6 ml/min; Est GFR (African American) 103.9 ml/min; Est GFR (Non-African American) 89.6 ml/min; Magnesium 2.1 mg/dl (1.7-2.4); Potassium 3.6 mmol/L (3.5-5.1)
[2024-03-17 07:26] LABS: Estimated Average Glucose 103 mg/dl; Hemoglobin A1C 5.2 % (4.5-5.6)
[2024-03-17] MEDS: ATORVASTATIN 40 MG TAB PO SCH (07:55)
[2024-03-17] MEDS: ASPIRIN 81 MG ECTAB PO SCH (07:55)
--- NOTE | 2024-03-17 09:09 | Neurology Consultation ---
Date of Consultation March 17, 2024 Assessment & Plan (1) Central retinal artery occlusion, left eye: (2) Hypertension: (3) Hypercholesterolemia: Plan Patient March 16, had the sudden onset (in a stuttering course) of decreased central vision in the left eye, consistent with a central retinal artery occlusion. She saw optometry and then a retinal specialist who performed a paracentesis in the left eye. This procedure was a definitive treatment for this condition. Fortunately, she can see some out of the left eye including centrally. By the time she came to the emergency room, she was at least 4-1/2 hours since the onset of the symptoms of the third and final episode. tPA was not considered. The patient had significant hypertension on arrival to the ER and has an elevated blood pressure still (although improved from yesterday). The etiology of the central retinal artery occlusion may have much to do with this marked hypertension. Otherwise, she has no evidence of stroke by MRI and has no other focal findings, meningeal signs, or encephalopathy. She does have a mildly elevated total cholesterol. CT angiography showed no vascular anomalies or stenoses in the head or neck. Recommendations: 1. Control blood pressure as you are doing, aiming for mean arterial pressure of approximately 100. 2. Awaiting echocardiogram 3. Continue 81 mg aspirin daily 4. Continue atorvastatin 40 mg daily 5. Patient has a follow-up with [facility] April 18. She needs formal visual field testing (perhaps Dr. Rader), and I would defer limitation of activities (including driving) to her eye doctors. 6. Patient apparently has an appointment with her PCP next week. I will defer treatment of hypertension to her PCP. 7. If her echocardiogram is unremarkable, then I would have no further recommendations to make. Overall, I spent a total of 120 minutes with this case including review of records, review of MRI films, direct evaluation of the patient at bedside, report generation, and discussion of the case with the patient and RN at bedside and Dr. York including differential diagnosis and treatment options. History of Present Illness Reason for Consultation: Patient is a 73-year-old, who I was asked to see at the request of Dr. Ferrer, for neurologic consultation regarding acute left central retinal artery occlusion Requesting Physician: Dr. Ferrer Attending Physician: Stephan York History of Present Illness This patient has a history of hypertension over 5 to 6 years. It is variable and tends to be worse in doctors offices then at home. 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 Patient got up at 0600, as usual, on March 16. 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 Around 0 945 while finishing up this first job she had the sudden onset of cloudy vision in her left eye (not the right). She could see a little bit peripherally but centrally she was not seeing much. This lasted about 2 minutes and then resolved completely. The patient was driving to her second job when she had the sudden onset of the same exact symptoms. This time it took about 5 minutes to clear her symptoms and she felt that she was markedly improved but not back to normal like she was after the first event. This time she was left with some cloudy vision in the middle of her vision. She thought she could see fairly well off to the sides. The right eye was not affected. Around 1030, while at her second job, the event happened a third time and this time it felt more intense and affected her vision worse and that she could not see anything centrally and very little peripherally. This third time it did not improve in minutes like it did the first 2 times. The patient saw her mechanical facilities technician, Maritza Rader, in [place], [place], around 1130, who felt the patient had a central retinal arterial occlusion. She referred her to [facility] in [place] and she saw Dr. Hinson in the early afternoon. Around 1400 he performed a paracentesis in the left eye and removed 0.2 mL of fluid from the anterior chamber. Patient felt that her vision improved some over the afternoon but she was sent from the retinal specialist to the emergency room for further evaluation. She came to the emergency room at 1459 with a temperature of 36.8, pulse 92, respiratory 18, blood pressure 219/138 and O2 saturation 97%. On exam the patient has decreased vision in the left eye (right was spared) with no other symptoms. There was no headache, eye pain, double vision, weakness, numbness, speech problems or confusion. CBC was unremarkable. Sed rate was 21. CHEM profile was unremarkable. Glucose was 119. CT scan of the head was unremarkable. CT angiography of the head and neck were unremarkable with no vascular anomalies or stenoses. MRI of the brain showed no acute stroke. There was some very mild old small vessel ischemic disease scattered in the hemispheres and very minimal atrophy in general. I reviewed these films. Today, CBC and CHEM profile were unremarkable. Total cholesterol was 211 and triglycerides 81. Blood pressure this morning is 163/99. Patient tells me that her vision is somewhat improved and that she can see some peripherally around the left eye and, actually, although her central vision is cloudy she has some vision. Allergies Allergy/AdvReac Type Severity Reaction Status Date / Time No Known Drug Allergies Allergy Verified 03/16/24 18:59 Home Medications Medication Instructions Recorded Confirmed Type multivitamin (Daily Multi-Vitamin 1 tab PO DAILY 09/20/19 03/16/24 History tablet) Osteoben 2 cap PO BID 05/25/20 03/16/24 History TRF-150 1 tab PO DAILY 09/17/21 03/16/24 History PREGNENOLONE 1 tab PO DAILY 03/24/22 03/16/24 History ferrochel 1 tab PO DAILY 03/24/22 03/16/24 History lactobacillus combination no.9 4 4,000 mmu cells PO DAILY 03/22/23 03/16/24 History billion cell capsule (Adult 50 Plus Probiotic) tri k 2,500 mg PO BID 03/22/23 03/16/24 History coenzyme Q10 100 mg capsule (Co 100 mg PO DAILY 09/27/23 03/16/24 History Q-10) prasterone (dhea) 25 mg capsule 25 mg PO DAILY 09/27/23 03/16/24 History (DHEA) acetylcysteine 500 mg capsule 500 mg PO DAILY 03/16/24 03/16/24 History cholecalciferol (vitamin D3) 25 25 mcg PO DAILY 03/16/24 03/16/24 History mcg (1,000 unit) tablet (Vitamin D3) Patient History Medical History Elevated fecal calprotectin Stomach ulcer Vitamin D deficiency Osteoporosis Iron deficiency anemia Hypercholesterolemia Hypertension Surgical History S/P gastric surgery stomach surgery Ulcer Surgery - 1972 Family History Father , in his mid 70s of colon cancer Colorectal cancer Prostate cancer Mother , in her mid 70s of COPD and other issues COPD (chronic obstructive pulmonary disease) Other No family history of adverse response to anesthesia No family history of bleeding disorder Denies family history of Ovarian cancer Myocardial infarction Breast cancer Social History Smoking Status: Never smoker Second Hand Exposure: No; Do You Dip or Chew Tobacco: No; Hx Alcohol Use: No Hx Substance Use: No Preferred Language: [place] Communication Ability: Effective Visual Impairment: Limited Hearing Ability: Hard of Hearing Forging Die Finisher Required: No Beliefs That Will Affect Care: None marital status: Current Living Situation: Spouse current occupational status: employed current occupation: house cleaning How many Children do You have: 2 How many Children do You have Comment: 2 girls Feels Safe at Home: Yes Safety Concerns: Feels Safe At This Time Childhood Exposure to Second-Hand Smoke: Yes Diet: regular Diet Comment: regular caffeine: Yes (green tea 3 cups per day) during the past year weight has: remained stable Dental Care, Regularly: Yes Physical Activity Frequency: Daily Seatbelt Use: always Sunscreen Use: No Assistive Devices: None Review of Systems Constitutional: no fever, no fatigue and no weakness Eyes: + problem reported (Decreased vision christie trally in the left eye); no diplopia and no eye pain Ear, Nose, Mouth, Throat: no ear pain, no tinnitus, no hearing loss, no dizziness, no snoring, no hoarseness and no dysphagia Respiratory: no cough and no dyspnea Cardiovascular: no chest pain, no palpitations and no lightheadedness Gastrointestinal: no abdominal pain, no nausea and no vomiting Genitourinary: no dysuria, no urinary frequency and no urinary incontinence Musculoskeletal: no back pain, no neck pain, no radicular pain, no joint pain and no myalgia Integumentary: no rash and no lesions Neurologic: no gait abnormality, no localized weakness, no generalized weakness, no tingling, no numbness, no tremor(s), no abnormal movements, no headache(s), no abnormal speech, no confusion and no memory loss Psychiatric: no depression, no irritability, no anxiety, no difficulty concentrating, no confusion and no hallucinations Endocrine: no fatigue and no flushing Hematologic / Lymphatic: no easy bleeding and no easy bruising Allergy / Immunological: no urticaria and no problem reported Exam (Neuro) Physical Exam: The patient is right-handed. The patient is awake, alert, and attentive. Speech is normal without any aphasia or dysarthria. Mentation and thought processes are intact, with full orientation and normal fund of knowledge. Mood and affect are normal and appropriate. Appearance and grooming are normal. Short and long-term memory are intact. The discs seem sharp with no obvious hemorrhages bilaterally. Pupils are 3 mm bilaterally and reactive to light. However, there is a mild left afferent pupillary defect noted with swinging flashlight test. Extraocular eye muscles are intact without nystagmus. Visual acuity is normal in the right eye. In the left eye she can read test phrases centrally with corrective lenses, although she states that it is cloudy. She could read the test phrases easier when she looks peripherally. Visual field testing was actually quite good bilaterally, and that she did not have any field cuts peripherally. There are no deficits to sensation in the face in all 3 distributions of the fifth cranial nerve bilaterally. Corneal reflexes are positive bilaterally. Facial strength and symmetry was normal bilaterally. Hearing seems intact grossly to voice and finger rub bilaterally. Palate moves well without asymmetry. There is normal sternocleidomastoid and trapezius strength bilaterally. Tongue is midline with good strength bilaterally. Neck has a full range of motion without discomfort. There are no cervical bruits bilaterally. There are no cranial or ocular bruits. Heart is without murmur. There is a regular rhythm and rate. Cervical, thoracic, and lumbar spine are nontender to palpation. Gait was not tested but stance sitting up in bed is quite normal. With outstretched arms there is no drift. There are no resting, postural, or action tremors. There is no ataxia with finger to nose testing. There is good facility in the hands. No other abnormal involuntary movements are noted. Motor strength is 5/5 diffusely in the arms bilaterally including deltoids, biceps, triceps, brachioradialis, wrist flexors and extensors, fur trimmer, and intrinsic hand muscles. Motor strength is 5/5 diffusely in the legs bilaterally including hip flexors, quadriceps, hamstrings, gastrocnemius, tibialis anterior, tibialis posterior, and Peroneii muscles bilaterally. Toe extensors are normal and there is good bulk in the extensor digitorum brevis muscles bilaterally. The limbs have good tone without rigidity or spasticity. There is no atrophy noted in the muscles. Muscle bulk is normal, there is no tenderness to palpation, no myotonia to percussion, and no fasciculations seen. Sensory examination is intact to touch and pin throughout all 4 limbs diffusely. Reflexes are 1/4 in the biceps, triceps, brachioradialis, quadriceps, and Achilles tendons bilaterally. Toes are downgoing with plantar stimulation bilaterally. Peripheral pulses are present and of normal quality distally in all 4 limbs. There is no peripheral edema noted in the limbs. Results & Data Vital Signs (Past 12 Hours) Vital Signs Pulse Pulse Resp BP BP Pulse Ox O2 Del Method 03/17/24 08:14 77 03/17/24 06:00 76 18 163/99 H 96 Room Air 03/17/24 04:00 71 16 160/97 H 95 Room Air 03/17/24 02:00 70 17 149/85 H 96 Room Air 03/17/24 01:14 79 16 162/88 H 97 Room Air 03/17/24 01:00 76 12 163/98 H 95 Room Air 03/17/24 00:00 66 18 165/89 H 95 Room Air 03/16/24 23:00 78 13 179/105 H 98 Room Air 03/16/24 21:30 81 20 195/115 H 99 Room Air PG Care Time/CCT Total # of Minutes Spent Total Time Spent with Patient: Total time spent is greater than 50% in coordination of care (as documented) at patient's floor/unit and/or counseling patient: Coding Level of Care Code 79373 INT INP/OBS CARE 3/75MIN Diagnoses Central retinal artery occlusion, left eye H34.12 Hypertension I10 Hypertension type: unspecified Hypercholesterolemia E78.00 Time Spent (min) 120 (2) Hypertension Hypertension type: unspecified Qualified Code(s): I10 - Essential (primary) hypertension
[2024-03-17] MEDS: amLODIPine BESYLATE 5 MG TAB PO SCH (13:16)
[2024-03-17] MEDS: ACETAMINOPHEN 500 MG TAB PO STA (15:50)
[2024-03-17] MEDS: lisinopril 2.5 MG TAB PO ONE ×2 (16:22→18:47)
--- NOTE | 2024-03-17 17:58 | Hospitalist Progress Note ---
Date of Service March 17, 2024 Assessment & Plan (1) Vision loss, left eye: Plan: -Had acute onset of blurred vision in the left eye 03/16 around 0930, was evaluated by Her floor service worker spring and retinal specialist who were concerned for possible CVA -CT of the head/brain wo con and CTA of the head/neck were negative for acute findings - Brain MRI: no acute processes - HGb A1c: 5.2 - lipids elevated --> atrovastatin 40mg started - Neurology consulted - control BP, MAP goal 100 - Continue ASA 81mg daily - Continue 40mg atorvastatin daily - Defer limitation of activities (including driving) to eye - Echocardiogram pending -PT/OT consults (2) Hypertension: Plan: - recieved amlodopine 5mg and lisinopril 5mg and BP increasing Was hoping for discharge today but will continue to monitor BP overnight (3) Central retinal artery occlusion, left eye: Plan Dispo: cotninued inpatient stay Admission and Anticipated Discharge Date Admission Date: March 16, 2024 Subjective Patient evaluated multiple times throughout the day in the ED. Vision unchanged since admission - can see shapes but fuzzy. this afternoon reported new headache - does not normally get headaches, this did improve after tylenol however blood pressures increasing despite PO medications Review of Systems Review of Systems: All systems reviewed & are unremarkable except as noted in Subjective Physical Exam Physical Exam: General: NAD, VS as above Resp: normal respiratory effort, lungs clear to auscultation CV: RRR, no murmur, Extremities: Moves all extremities, no edema Neuro: A&O x3, Results & Data Results & Data Vital Signs (Past 12 Hours) Vital Signs Pulse Pulse Resp BP BP Pulse Ox O2 Del Method 03/17/24 17:17 79 20 179/102 H 97 Room Air 03/17/24 16:00 89 18 178/108 H 97 Room Air 03/17/24 15:53 79 20 197/125 H 96 Room Air 03/17/24 14:29 176/99 H 03/17/24 10:22 84 15 187/103 H 99 Room Air 03/17/24 09:52 83 16 187/103 H 97 Room Air 03/17/24 08:14 77 03/17/24 06:00 72 16 163/99 H 96 Room Air 03/17/24 06:00 76 18 163/99 H 96 Room Air Laboratory Results CBC, chemistry, lipid panel, A1c reviewed Diagnostic Findings brain MRI reviewed PG Care Time/CCT Total # of Minutes Spent Total Time Spent with Patient: Total time spent is greater than 50% in coordination of care (as documented) at patient's floor/unit and/or counseling patient: Coding Level of Care Code 56766 SUB INP/OBS CARE 3/50MIN Diagnoses Vision loss, left eye H54.62 Hypertension I10 Hypertension type: unspecified Central retinal artery occlusion, left eye H34.12 (2) Hypertension Hypertension type: unspecified Qualified Code(s): I10 - Essential (primary) hypertension
--- NOTE | 2024-03-17 20:52 | XCELERA ---
[id number]
[2024-03-18] MEDS: lisinopril 5 MG TAB PO SCH (07:06)
[2024-03-18] MEDS ORDERED: lisinopril 10 MG TAB PO SCH (09:00)
--- NOTE | 2024-03-18 18:50 | Discharge Summary ---
Date of Service March 18, 2024 Admission HPI Per Admitting Provider Justine is a 73 year old female with a PMH significant for HTN, Hyperlipidemia, Iron deficiency anemia, and Vitamin B12 deficiency who presented to the [facility] ED from a retinal specialist due to concerns for possible stroke with new onset left eye vision changes. She was noted to be hypertensive at 219/138 and tachycardic at 92 but otherwise stable. Labs were significant for a glucose of 119. CT of the head/brain wo con and CTA of the head/neck were read as negative for acute findings. Prior to admission the patient was given 2L NSS. We were asked to admit the patient for ongoing stroke evaluation. At the time of the exam the patient was sitting in bed in no acute distress. She had been in her normal state of health until this am around 0930 when she developed sudden onset of blurry vision in the left eye. She states that it looked as though there was a shadow over the visual field of her left eye. She denies any other neurological symptoms. The first episode lasted for approximately 5 minutes then resolved on it's own. It then returned approximately 15 min later and lasted for another 5 min before resolving. It returned for a third time shortly after and was persistent. She was evaluated by her normal Cattle Tester who was concerned for a possible CVA and sent her to a retinal specialist in [place]. She was evaluated by the retinal specialist who dilated both pupils and drained some fluid from her left eye. He then sent her to the ED for further evaluation. Since arriving to the ED she states that her vision improved slightly in the left eye. Her vision is still blurry but she is able to seem some shapes now. She denies alcohol and tobacco use. Denies previous hx of a CVA. She is a full code and her would make medical decisions for her if she cannot make them herself. Principal Diagnosis Left central retinal artery occlusion, Uncontrolled hypertension Discharge Exam PHYSICAL EXAMINATION Last 24h vital signs reviewed, see documentation in flowsheet General: comfortable appearing, no distress HEENT: Normocephalic, atraumatic, pupils round and equal, sclerae anicteric, no conjunctival injection, moist mucus membranes Lungs: Normal respiratory effort. Clear to auscultation bilaterally. No RRW Heart: Regular rate and rhythm, no murmurs. No JVD Abdomen: Soft, nontender, nondistended. Bowel sounds present. Extremities: Warm, dry, well-perfused. No extremity edema. Neuro: Alert and oriented x 4, face symmetric, reports vision loss L eye, moves 4 extremities well, real estate legal assistant equal, has been ambulatory to bathroom Psych: Normal affect and behavior Discharge Data Allergies Allergy/AdvReac Type Severity Reaction Status Date / Time No Known Drug Allergies Allergy Verified 03/16/24 18:59 Consultations 03/16/24 17:20 ED Decision to Admit Stat 03/16/24 21:51 Consult Neurology Routine Ordered Studies 03/16/24 15:04 CT angio head w con Stat CT angio neck with con Stat CT head/brain wo con Stat 03/16/24 18:28 MRI Brain [MR brain wo con] Stat 03/17/24 04:37 03/17/24 04:37 Hospital Course (1) Central retinal artery occlusion, left eye: -Had acute onset of blurred vision in the left eye 03/16 around 0930, was evaluated by Her ux lead and retinal specialist who were concerned for possible CVA -CT of the head/brain wo con and CTA of the head/neck were negative for acute findings and intra or extracranial stenoses - Brain MRI: no acute processes - HGb A1c: 5.2 - lipids elevated --> atrovastatin 40mg started - ASA 81 mg - blood pressure control - Neurology consulted - Defer limitation of activities (including driving) and visual field testing to ux lead. Has follow up scheduled - Echocardiogram 03/17 reviewed - normal EF, valves, no shunt, no thrombosis - remained in NSR on tele Encouragingly reports some improvement in L eye vision /20 (2) Hypertension: Uncontrolled hypertension BP improved on amlodipine 5 mg and lisinopril 5 mg She will get home BP cuff Will need further dose titration -follow up with PCP - has appt with Dr. Zamora 03/28 Total Time Total Time Spent Total Time Spent (In Minutes): less than 30 minutes Discharge Plan Discharge Items Patient Disposition: Home - Self-Care Reason For Visit: LEFT EYE VISION CHANGES, STROKE WORKUP Discharge Diagnosis: Left Vision loss - Left central retinal artery occlusion, uncontrolled hypertension Activity: Resume your previous activity Driving/Machine Use: NO DRIVING until cleared by eye Weightbearing: Full weightbearing Non-emergency contact: Primary Care Provider and Cattle Tester Call non-emergency contact if: you have any medication questions Follow-up/Referrals: Agustin Bansal CRNP [Primary Care Provider] - 03/27/24 10:00 am (Appointment with Carlos BECERRIL.) Diet: Heart Healthy and Low Sodium (2gm) Addtl Attending Provider Instructions: Ms. Keene, you were sent to the hospital by her eye doctor after abrupt vision loss, for stroke workup. During her hospital stay you had a head CT and brain MRI that did not show a stroke. As part of the stroke workup performed hemoglobin A1c (the average of your blood sugars over 90 days) this was 5.2, indicating that you are not diabetic or prediabetic. We also did a cholesterol panel that showed your cholesterol was elevated and started you on a cholesterol medicine called atorvastatin. This will also help decrease your stroke risk. you were seen by neurology who also did not think that you had a stroke. Recommend that you take baby aspirin and atorvastatin every day. They also recommended the echocardiogram (ultrasound of your heart) to look for any defects like we discussed, this was normal. during your stay you had significantly elevated blood pressures. We started you on amlodipine 5 mg and lisinopril 5 mg you should take these every morning. I also recommend that you take your blood pressure cuff to the PCP office with you to make sure the readings that you are getting at home are accurate. you should not drive until you are cleared to do so by her eye doctor. I would recommend calling them to get a appointment before April 18 for formal visual field testing. medication change summary: - Amlodipine 5 mg and lisinopril 5 mg every morning for blood pressure - atorvastatin 40 mg daily for high cholesterol - aspirin 81 mg daily for stroke prevention - you should purchase this [id number] Activity: You can do normal everyday activities as your body allows. Take rest breaks if you feel tired. Do not overexert. Stop activity if you have pain, shortness of breath or feel dizzy. Follow-up appointments: Make an appointment with your primary care physician within one week of discharge. A copy of this summary will be sent to them. Every time you see your primary care physician, or any other doctor, bring your medication list, and a list of questions. CONTACT YOUR PRIMARY CARE PROVIDER if you experience any of the following: Shortness of breath or difficulty breathing Fevers or chills Feeling tired with normal activity or experiencing dizziness or fainting Difficulty following your treatment plan, or difficulty taking medications Blood pressure too low (top number less than 100) or too high (top number greater than 170) after rechecking it CALL 911 OR GO TO THE EMERGENCY DEPARTMENT if you experience any of the following: Severe abdominal pain or nausea/vomiting Severe chest pain, or chest pain that radiates (moves) to your jaw or arm Sudden, severe shortness of breath or difficulty breathing Thank you for allowing us to participate in your care. Addtl Customer Sales Specialist Provider Instructions: Risk Factors for Stroke: You can reduce your chances of stroke by working with your medical provider to adopt a healthy lifestyle. Some specific ways to lower your chance of stroke are: * If you are a smoker, now is the time to stop smoking cigarettes * If you are diabetic, improve the control of your blood sugars * Avoid excessive amounts of alcohol * Control high blood pressure * Lose weight if you are overweight * Be sure to lead an active lifestyle * Eat a healthy diet low in salt, cholesterol and fat You should know about other risk factors for stroke that you are unable to control. These include: * Age 55 years or older * Male gender * Certain racial groups: , or / * Family History of Stroke, Mini stroke or Heart Attack * Sickle Cell Disease Follow Up: It is important for you to keep your follow up appointments with your medical provider. Who to Call and When: Medical Emergencies: Call 911 immediately if you experience any of the following warning signs and symptoms of Stroke: * Sudden numbness or weakness of the face, arm or leg, especially on one side of the body * Sudden confusion, trouble speaking or understanding * Sudden trouble seeing in one or both eyes * Sudden trouble walking, dizziness, loss of balance or coordination * Sudden severe headache with no cause Do not delay calling 911 if you experience any warning signs or symptoms of a stroke. Delay in seeking medical attention may affect what treatments can be given to you. . Pending Studies at Discharge: No ( echocardiogram looking for PFO) Stand-Alone Forms: My [employer], Smoking Cessation Medications and DC Order Prescriptions: New atorvastatin 40 mg Tablet 40 mg PO QAM 30 Days Qty: 30 1RF amlodipine [Norvasc] 5 mg Tablet 5 mg PO QAM 30 Days Qty: 30 1RF aspirin 81 mg Tablet,Delayed Release (Dr/Ec) 81 mg PO QAM 30 Days Qty: 30 0RF lisinopril [Zestril] 5 mg Tablet 5 mg PO QAM Qty: 30 0RF Continued multivitamin [Daily Multi-Vitamin] tablet 1 tab PO DAILY tri k 2,500 mg PO BID Adult 50 Plus Probiotic 4 billion cell capsule 4,000 mmu cells PO DAILY Rx Instructions: administer with a meal coenzyme Q10 [Co Q-10] 100 mg capsule 100 mg PO DAILY TRF-150 1 tab PO DAILY ferrochel 1 tab PO DAILY PREGNENOLONE 1 tab PO DAILY prasterone (dhea) [DHEA] 25 mg capsule 25 mg PO DAILY Osteoben 2 cap PO BID cholecalciferol (vitamin D3) [Vitamin D3] 25 mcg (1,000 unit) Tablet 25 mcg PO DAILY Rx Instructions: 250 mg a week acetylcysteine 500 mg Capsule 500 mg PO DAILY Discharge Orders: Discharge Order (Routine); Ordered 03/18/24 Ordered By: Jazmyn Medeiros/Other Patient Handouts: DASH Plan Eat Heart Healthy Food, ED Hypertension, Established Admission Data Admit Date/Time: 03/16/24 18:14 Attending Provider: Jazmyn Demarco Admit Provider: Hamzah Ferrer Primary Care Provider: Agustin Bansal Other Providers: Hamzah Ferrer; Jose Sol Other Interventions: Discharge Summary Assessment (RN) Last Done: 03/18/24 13:12 Coding Level of Care Code 81336 IN/OBS DISCH 30 MIN/LESS Diagnoses Central retinal artery occlusion, left eye H34.12 Hypertension I10 Hypertension type: unspecified
[2024-03-19] MEDS ORDERED: lisinopril 5 MG TAB PO SCH (09:00)
== END 2024-03-18 13:23 | disposition home or self-care (01) | DRG 125 ==
LOC: ED 14:52 → SUATTDRO 18:14 → EDINP 18:14